=== PATIENT | female | born 1995 | race Caucasian/White ===

== ENCOUNTER → 2017-02-21 | Outpatient (CLI) | payer BC ==
[~2017-02-21] MED LIST: BCPILLS PO; FLV1 PO; LEVE500T13 PO; LEVE500T26 PO; RIBO100T9 PO; VITAMIN B 2 PO
[2017-02-23 03:10] LABS: CHLAMYDIA TRACH RNA*** DETECTED (NOT DETECTED); GC (NEIS GONORRHOEAE)RNA** NOT DETECTED (NOT DETECTED)
== END | disposition home or self-care (01) ==
LOC: C.LABSPEC 10:51
PROVIDERS: ATTEND Obstetrics & Gynecology
DX: Z01.419 Encounter for gynecological examination (general) (routine) without abnormal findings (principal)

== ENCOUNTER → 2017-02-21 | Outpatient (CLI) | payer BC | END | disposition home or self-care (01) | LOC: C.PAPS 11:30 | PROVIDERS: ATTEND Obstetrics & Gynecology | DX: Z01.419 Encounter for gynecological examination (general) (routine) without abnormal findings (principal) ==

== ENCOUNTER → 2017-04-12 | Outpatient (CLI) | payer BC | END | disposition home or self-care (01) | LOC: C.LABSPEC 16:07 | PROVIDERS: ATTEND Obstetrics & Gynecology | DX: A56.09 Other chlamydial infection of lower genitourinary tract (principal) ==

== ENCOUNTER 2017-05-05 20:56 | Emergency (ER) | payer BC ==
[~2017-05-05] VITALS: Ht 154.9 cm; Wt 45.6 kg
[~2017-05-05 20:56] MED LIST changes: -FLV1 PO; -LEVE500T13 PO; -RIBO100T9 PO
[2017-05-05 20:58] VITALS: TEMP 36.7; Ht 154.9 cm; Wt 45.6 kg
--- NOTE | 2017-05-05 21:26 | EMERGENCY ROOM VISIT NOTE ---
History Report prepared by Lavon: Boni Pressley Under the Supervision of: Dr. Vasiliy Mobley M.D. First contact with patient: 21:06 Chief Complaint: ABDOMINAL PAIN Stated Complaint: LOWER LF ABD CRAMPS/BACK PAIN History of Present Illness The patient is a 21 year old female who presents to the Emergency Room with complaints of intermittent, cramping, left lower quadrant abdominal pain beginning four days ago. The patient states that her pain radiates to her lower back. She reports that movements do not trigger her symptoms. The patient notes that when her pain is present, it is a 2/10 in severity, lasts for about a minute, and occurs 4-5 times an hour. She states that her last period was in March, and her menstrual cycle is typically irregular. The patient reports that she took two tests prior to arrival, and they were both positive. She notes that she takes Keppra for seizures. The patient denies fevers, vomiting, urinary problems, diarrhea, vaginal bleeding, vaginal discharge, history of abdominal surgeries, and a history of being . Source of History: patient Onset: four days ago Position: abdomen (LLQ) Symptom Intensity: 2/10 Quality: cramping Timing: intermittent Associated Symptoms: + back pain (lower), No fevers, No vomiting, No diarrhea, No urinary symptoms Note: The patient denies vaginal bleeding, vaginal discharge, history of abdominal surgeries, and a history of being . Review of Systems See HPI for pertinent positives & negatives. A total of 10 systems reviewed and were otherwise negative. Past Medical & Surgical Medical Problems: (1) Seizure Family History Cancer Diabetes mellitus FH: heart disease Hypertension Kidney disease Kidney stones Seizures Social History Smoking Status: Never Smoker Marital Status: single Housing Status: lives with family Occupation Status: student Current/Historical Medications Scheduled Control Pills ( Control Pills), 1 TAB PO DAILY Folic Acid (Folic Acid), 1 TAB PO DAILY Levetiracetam (Keppra), 500 MG PO BID Riboflavin (Vitamin B-2), 100 MG PO BID Allergies Coded Allergies: Lamotrigine (Verified Allergy, Intermediate, rash, 11/02/14) Sulfa Drugs (Verified Allergy, Intermediate, rash, 11/02/14) Metoclopramide (Verified Allergy, Unknown, `, 11/02/14) Uncoded Allergies: CONTRAST MEDIA (Allergy, Mild, RASH, 11/02/14) Physical Exam Vital Signs Date Time Temp Pulse Resp B/P (MAP) Pulse Ox O2 Delivery O2 Flow Rate FiO2 05/05/17 22:11 109 16 120/75 100 Room Air 05/05/17 20:58 36.7 92 16 138/85 100 Room Air Physical Exam GENERAL: Patient is in no acute distress. HEENT: No acute trauma, normocephalic atraumatic, mucous membranes moist, no nasal congestion, no scleral icterus. NECK: No stridor, no adenopathy, no meningismus, trachea is midline. LUNGS: Clear to auscultation bilaterally, no wheeze, no rhonchi, breath sounds equal. HEART: Mildly tachycardic with a regular rhythm, no murmurs. ABDOMEN: Soft, bowel sounds positive, no hernias, no peritonitis. Mildly tender in the left lower quadrant. EXTREMITIES: No cyanosis or edema, full range of motion of all the joints without pain or difficulty, no signs for acute trauma. NEUROLOGIC: Oriented x 3, no acute motor or sensory deficits, no focal weakness. SKIN: No rash, no jaundice, no diaphoresis. Medical Decision & Procedures ER Provider Diagnostic Interpretation: Radiology results as stated below per my review and radiologist interpretation: ECTOPIC HISTORY: 21 years-old Female left lower quad pain, pos preg test acute left lower pelvic pain with . Initial exam. COMPARISON: CT abdomen and pelvis 11/02/2014 TECHNIQUE: Multiple real-time sonographic images of the deep pelvic structures were obtained transabdominally and transvaginally assessing grayscale appearance, color and spectral flow. FINDINGS: TRANSABDOMINAL: Anteflexed uterus is seen, 7.2 x 4.0 x 5.8 cm. Endometrium measures 1.2 cm. TRANSVAGINAL: Endometrium measures 1.3 cm. No intrauterine gestation identified. Right ovary measures 4.9 x 2.5 x 3.9 cm. Arterial inflow is documented within the right ovary. There is a cystic structure of the right ovary, 2.5 x 1.6 x 2.4 cm Left ovary measures 2.6 x 1.6 x 1.5 cm. Arterial inflow within the left ovary is documented. Mild amount of free pelvic fluid is present. IMPRESSION: 1. No intrauterine or extrauterine gestation is identified. In the setting of positive qualitative beta hCG, differential considerations would include early normal intrauterine gestation, occult ectopic gestation or recent spontaneous . Correlate with patient history, follow-up ultrasound and quantitative beta hCG analysis. 2. Follicle of the right ovary, 2.5 cm. 3. No evidence of ovarian torsion. 4. Mild free pelvic fluid, likely physiologic. The above report was generated using voice recognition software. It may contain grammatical, syntax or spelling errors. Electronically signed by: Renny Lloyd M.D. 05/05/2017 10:19 PM Dictated Date/Time: 05/05/2017 10:14 PM Laboratory Results 05/05/17 21:22 Red Blood Count 4.29, Mean Corpuscular Volume 89.0, Mean Corpuscular Hemoglobin 31.2, Mean Corpuscular Hemoglobin Concent 35.1, Mean Platelet Volume 9.4, Neutrophils (%) (Auto) 56.0, Lymphocytes (%) (Auto) 30.9, Monocytes (%) (Auto) 11.7, Eosinophils (%) (Auto) 0.6, Basophils (%) (Auto) 0.5, Neutrophils # (Auto ) 5.87, Lymphocytes # (Auto) 3.24, Monocytes # (Auto) 1.23, Eosinophils # (Auto ) 0.06, Basophils # (Auto) 0.05 05/05/17 21:22 Test 05/05/17 21:10 05/05/17 21:22 Urine Color DK YELLOW Urine Appearance CLEAR (CLEAR) Urine pH 5.5 (4.5-7.5) Urine Specific [place] 1.017 (1.000-1.030) Urine Protein NEG (NEG) Urine Glucose (UA) NEG (NEG) Urine Ketones NEG (NEG) Urine Occult Blood NEG (NEG) Urine Nitrite NEG (NEG) Urine Bilirubin NEG (NEG) Urine Urobilinogen NEG (NEG) Urine Leukocyte Esterase NEG (NEG) White Blood Count 10.48 K/uL (4.8-10.8) Red Blood Count 4.29 M/uL (4.2-5.4) Hemoglobin 13.4 g/dL (12.0-16.0) Hematocrit 38.2 % (37-47) Mean Corpuscular Volume 89.0 fL (80-100) Mean Corpuscular Hemoglobin 31.2 pg (25-34) Mean Corpuscular Hemoglobin Concent 35.1 g/dl (32-36) Platelet Count 315 K/uL (130-400) Mean Platelet Volume 9.4 fL (7.4-10.4) Neutrophils (%) (Auto) 56.0 % Lymphocytes (%) (Auto) 30.9 % Monocytes (%) (Auto) 11.7 % Eosinophils (%) (Auto) 0.6 % Basophils (%) (Auto) 0.5 % Neutrophils # (Auto) 5.87 K/uL (1.4-6.5) Lymphocytes # (Auto) 3.24 K/uL (1.2-3.4) Monocytes # (Auto) 1.23 K/uL (0.11-0.59) Eosinophils # (Auto) 0.06 K/uL (0-0.5) Basophils # (Auto) 0.05 K/uL (0-0.2) RDW Standard Deviation 37.9 fL (36.4-46.3) RDW Coefficient of Variation 11.8 % (11.5-14.5) Immature Granulocyte % (Auto) 0.3 % Immature Granulocyte # (Auto) 0.03 K/uL (0.00-0.02) Anion Gap 9.0 mmol/L (3-11) Est Creatinine Clear Calc Drug Dose 95.4 ml/min Estimated GFR () 144.3 Estimated GFR (Non- 124.5 BUN/Creatinine Ratio 14.2 (10-20) Calcium Level 9.4 mg/dl (8.5-10.1) Total Bilirubin 0.3 mg/dl (0.2-1) Aspartate Amino Transf (AST/SGOT) 15 U/L (15-37) Alanine Aminotransferase (ALT/SGPT) 11 U/L (12-78) Alkaline Phosphatase 94 U/L (45-117) Total Protein 8.4 gm/dl (6.4-8.2) Albumin 4.4 gm/dl (3.4-5.0) Globulin 3.9 gm/dl (2.5-4.0) Albumin/Globulin Ratio 1.1 (0.9-2) Lipase 159 U/L (73-393) Human Chorionic Gonadotropin, Qual POS (NEG) Laboratory results reviewed by me. ED Course 2106: The patient was evaluated in room C07. A complete history and physical exam was performed. 2254: Reevaluated the patient. Discussed results and discharge instructions: she verbalized understanding and agreement. The patient is ready for discharge. Medical Decision The patient is a 21 year old female who presents to the ED with complaints of left lower quadrant abdominal pain. Differential diagnoses considered include ectopic or , ovarian cyst, UTI, nerve impingement, hernia.. There is no leukocytosis or concerning anemia. No significant electrolyte abnormality or kidney failure. testing is positive. Quantitative beta hCG is pending. Urinalysis does not show infection or hematuria. There was no hepatitis or pancreatitis. Pelvic ultrasound could not see a within the uterus or elsewhere. The ultrasound was essentially nondiagnostic for . The patient is not in significant pain, she is not having vaginal bleeding. I did speak with her. At this point, the cause for the pain is unclear. She is but this is very early on. As to whether this is an ectopic or intrauterine is unclear. She needs OB follow-up and repeat laboratory testing and ultrasounds. She was encouraged to return here for fever , vomiting, worsening pain or vaginal bleeding. Impression Primary Impression: Pelvic cramping Additional Impression: Scribe Attestation The scribe's documentation has been prepared under my direction and personally reviewed by me in its entirety. I confirm that the note above accurately reflects all work, treatment, procedures, and medical decision making performed by me. Departure Information Dispostion Home / Self-Care Referrals Rach Henderson (PCP) Boni Mims ., DO Forms HOME CARE DOCUMENTATION FORM, IMPORTANT VISIT INFORMATION Patient Instructions My [facility] Additional Instructions must see ob doctor for recheck this week you are but the ultrasound could not see a yet return for worsening pain or vaginal bleeding Problem Qualifiers
[2017-05-05 21:32] LABS: BASO % 0.5 %; BASO ABS # 0.05 K/uL (0-0.2); COMPLETE YES; EOS % 0.6 %; HEMATOCRIT 38.2 % (37-47); IG% 0.3 %; LYMPH % 30.9 %; LYMPH ABS # 3.24 K/uL (1.2-3.4); MEAN CORPUSCULAR HEMOGLOBIN 31.2 pg (25-34); MEAN CORPUSCULAR HGB CONC 35.1 g/dl (32-36); MEAN PLATELET VOLUME 9.4 fL (7.4-10.4); MONO % 11.7 %; PLATELET COUNT 315 K/uL (130-400); RED BLOOD COUNT 4.29 M/uL (4.2-5.4); WHITE BLOOD COUNT 10.48 K/uL (4.8-10.8)
[2017-05-05 21:35] LABS: URINE APPEARANCE CLEAR (CLEAR); URINE BILIRUBIN NEG (NEG); URINE COLOR DK YELLOW; URINE NITRITE NEG (NEG); URINE PH 5.5 (4.5-7.5); URINE SPECIFIC GRAVITY 1.017 (1.000-1.030); UROBILINOGEN NEG (NEG); ZZUR CULT IF INDIC CLEAN CATCH NO
[2017-05-05 21:37] LABS: MANUAL MICROSCOPIC REQUIRED? NO; REVIEW REQ? NO
[2017-05-05] MEDS ORDERED: FLV1 PO (21:39)
[2017-05-05] MEDS ORDERED: RIBO100T9 PO (21:39)
[2017-05-05] MEDS ORDERED: LEVE500T13 PO (21:39)
[2017-05-05 21:49] LABS: BUN/CREATININE RATIO 14.2 (10-20); CALCIUM 9.4 mg/dl (8.5-10.1); CREATININE 0.66 mg/dl (0.60-1.20); POTASSIUM 3.4 mmol/L (3.5-5.1)
[2017-05-05 21:52] LABS: ALB/GLOB RATIO 1.1 (0.9-2)
[2017-05-05 21:59] LABS: PREG INTERNAL NEGATIVE QC NEG CLEAR BACKGROUND; PREG INTERNAL POSITIVE QC POS CONTROL LINE
--- NOTE | 2017-05-05 22:20 | DIAGNOSTIC IMAGING REPORT ---
ECTOPIC HISTORY: 21 years-old Female left lower quad pain, pos preg test acute left lower pelvic pain with . Initial exam. COMPARISON: CT abdomen and pelvis 11/02/2014 TECHNIQUE: Multiple real-time sonographic images of the deep pelvic structures were obtained transabdominally and transvaginally assessing grayscale appearance, color and spectral flow. FINDINGS: TRANSABDOMINAL: Anteflexed uterus is seen, 7.2 x 4.0 x 5.8 cm. Endometrium measures 1.2 cm. TRANSVAGINAL: Endometrium measures 1.3 cm. No intrauterine gestation identified. Right ovary measures 4.9 x 2.5 x 3.9 cm. Arterial inflow is documented within the right ovary. There is a cystic structure of the right ovary, 2.5 x 1.6 x 2.4 cm Left ovary measures 2.6 x 1.6 x 1.5 cm. Arterial inflow within the left ovary is documented. Mild amount of free pelvic fluid is present. IMPRESSION: 1. No intrauterine or extrauterine gestation is identified. In the setting of positive qualitative beta hCG, differential considerations would include early normal intrauterine gestation, occult ectopic gestation or recent spontaneous . Correlate with patient history, follow-up ultrasound and quantitative beta hCG analysis. 2. Follicle of the right ovary, 2.5 cm. 3. No evidence of ovarian torsion. 4. Mild free pelvic fluid, likely physiologic. The above report was generated using voice recognition software. It may contain grammatical, syntax or spelling errors. Electronically signed by: Renny Lloyd M.D. 05/05/2017 10:19 PM Dictated Date/Time: 05/05/2017 10:14 PM
[2017-05-05 23:05] VITALS: BP 108/73; PULSE 99; O2SAT 98
== END 2017-05-05 23:08 | disposition home or self-care (01) ==
LOC: C.EDB 20:57 → C.EDC 23:08
DX: O99.89 Other specified diseases and conditions complicating pregnancy, childbirth and the puerperium (principal); R10.32 Left lower quadrant pain; Z3A.01 Less than 8 weeks gestation of pregnancy; Z80.9 Family history of malignant neoplasm, unspecified; Z83.3 Family history of diabetes mellitus; Z82.49 Family history of ischemic heart disease and other diseases of the circulatory system; Z84.1 Family history of disorders of kidney and ureter; Z82.0 Family history of epilepsy and other diseases of the nervous system; Z79.899 Other long term (current) drug therapy; Z79.3 Long term (current) use of hormonal contraceptives

== ENCOUNTER → 2017-05-28 | Outpatient (CLI) | payer BC ==
[~2017-05-28] MED LIST changes: +FLV1 PO; +LEVE500T13 PO; -LEVE500T26 PO; +RIBO100T9 PO; -VITAMIN B 2 PO
[2017-05-28 17:44] LABS: URINE APPEARANCE TURBID (CLEAR); URINE BILIRUBIN NEG (NEG); URINE COLOR DK YELLOW; URINE NITRITE NEG (NEG); URINE SPECIFIC GRAVITY 1.025 (1.000-1.030); UROBILINOGEN NEG (NEG)
[2017-05-28 17:47] LABS: MANUAL MICROSCOPIC REQUIRED? NO; REVIEW REQ? YES
== END | disposition home or self-care (01) ==
LOC: C.LABSPEC 16:45
PROVIDERS: ATTEND Obstetrics & Gynecology
DX: O99.351 Diseases of the nervous system complicating pregnancy, first trimester (principal); G96.9 Disorder of central nervous system, unspecified; Z3A.00 Weeks of gestation of pregnancy not specified

== ENCOUNTER → 2017-06-05 | Outpatient (CLI) | payer BC ==
[2017-06-05 13:24] LABS: BASO % 0.6 %; BASO ABS # 0.05 K/uL (0-0.2); COMPLETE YES; EOS % 0.4 %; HEMATOCRIT 37.6 % (37-47); IG% 0.5 %; LYMPH % 21.6 %; LYMPH ABS # 1.76 K/uL (1.2-3.4); MEAN CORPUSCULAR HEMOGLOBIN 29.9 pg (25-34); MEAN CORPUSCULAR HGB CONC 33.2 g/dl (32-36); MEAN PLATELET VOLUME 9.6 fL (7.4-10.4); MONO % 11.9 %; PLATELET COUNT 260 K/uL (130-400); RED BLOOD COUNT 4.18 M/uL (4.2-5.4); WHITE BLOOD COUNT 8.13 K/uL (4.8-10.8)
[2017-06-08 02:55] LABS: CHLAMYDIA TRACH RNA*** NOT DETECTED (NOT DETECTED); GC (NEIS GONORRHOEAE)RNA** NOT DETECTED (NOT DETECTED)
== END | disposition home or self-care (01) ==
LOC: C.LAB1850 11:30
PROVIDERS: ATTEND Obstetrics & Gynecology
DX: O99.351 Diseases of the nervous system complicating pregnancy, first trimester (principal); Z3A.00 Weeks of gestation of pregnancy not specified

== ENCOUNTER → 2017-07-24 | Outpatient (CLI) | payer BC ==
[2017-07-24 11:19] LABS: GTGD 50 Grams
[2017-07-25 14:17] LABS: AFP CONCENTRATION 39.6 NG/ML; AFP MULTIPLE OF MEDIAN 0.89; AFPTS GESTATIONAL AGE 16.1 WEEKS; AFPTS INSULIN DEP DIABETIC? NO; AFPTS MATERNAL WT 99 LBS; ALPHA-FETOPROTEIN RACE CAUCASIAN=W; CIGARETTE SMOKER? NOT PROVIDED; HISTORY OF NTD NO; REPEAT SAMPLE? NO
== END | disposition home or self-care (01) ==
LOC: C.LAB1850 08:46
PROVIDERS: ATTEND Obstetrics & Gynecology
DX: Z34.02 Encounter for supervision of normal first pregnancy, second trimester (principal)

== ENCOUNTER → 2017-09-28 | Outpatient (CLI) | payer OTHER ==
[2017-09-28 18:47] LABS: HEP C IGG 13 YRS+OLDER_RFLX NEG (NEG)
== END | disposition home or self-care (01) ==
LOC: C.LAB1850 17:15
PROVIDERS: ATTEND Nurse Practitioner Family
DX: Z77.21 Contact with and (suspected) exposure to potentially hazardous body fluids (principal)

== ENCOUNTER → 2017-10-04 | Outpatient (CLI) | payer OTHER | END | disposition home or self-care (01) | LOC: C.LABSPEC 14:06 | PROVIDERS: ATTEND Obstetrics & Gynecology | DX: B00.9 Herpesviral infection, unspecified (principal) ==

== ENCOUNTER → 2017-10-15 | Outpatient (CLI) | payer OTHER ==
[2017-10-15 13:01] LABS: HEMATOCRIT 30.6 % (37-47); HEMOGLOBIN 10.7 g/dL (12.0-16.0)
== END | disposition home or self-care (01) ==
LOC: C.LAB1850 11:42
PROVIDERS: ATTEND Obstetrics & Gynecology
DX: Z34.03 Encounter for supervision of normal first pregnancy, third trimester (principal)

== ENCOUNTER → 2017-10-15 | Outpatient (CLI) | payer OTHER | END | disposition home or self-care (01) | LOC: C.LABSPEC 13:37 | PROVIDERS: ATTEND Obstetrics & Gynecology | DX: Z34.03 Encounter for supervision of normal first pregnancy, third trimester (principal) ==

== ENCOUNTER → 2017-10-29 | Outpatient (CLI) | payer OTHER | END | disposition home or self-care (01) | LOC: C.LABSPEC 13:22 | PROVIDERS: ATTEND Obstetrics & Gynecology | DX: Z20.2 Contact with and (suspected) exposure to infections with a predominantly sexual mode of transmission (principal) ==

== ENCOUNTER → 2017-11-09 | Outpatient (CLI) | payer OTHER | END | disposition home or self-care (01) | LOC: C.LABSPEC 17:28 | PROVIDERS: ATTEND Nurse Practitioner Family | DX: Z77.21 Contact with and (suspected) exposure to potentially hazardous body fluids (principal) ==

== ENCOUNTER 2017-12-04 23:28 | Emergency (ER) | payer OTHER ==
[~2017-12-04] VITALS: Ht 154.9 cm; Wt 53.9 kg
[2017-12-04 23:32] VITALS: TEMP 36.9; Ht 154.9 cm; Wt 53.9 kg
[2017-12-05] MEDS ORDERED: NORCO 5/325MG HOME PACK PO ONE
[2017-12-05] MEDS ORDERED: FOLI1TAB8 PO (00:01)
[2017-12-05] MEDS ORDERED: PRENTAB26 PO (00:01)
[2017-12-05 00:24] VITALS: BP 109/72; PULSE 97; O2SAT 97
--- NOTE | 2017-12-05 23:51 | EMERGENCY ROOM VISIT NOTE ---
History First contact with patient: 23:35 Chief Complaint: BACK PAIN Stated Complaint: LT SIDE BACK PAIN History of Present Illness The patient is a 22 year old female who presents to the Emergency Room with complaints of left-sided back pain radiating down her left leg that began worsening today. The patient does not have history of injury or trauma to explain her symptoms. Her discomfort worsens with certain movements and sitting in certain positions. The patient does not have numbness or paresthesias. No difficulty or changes in using the bathroom. She is 35 weeks , and because of this has not taken anything [id number] for her discomfort. She does not have a history of chronic back pain. She rates her current discomfort a 2/10 at rest and 8/10 at the worst. Review of Systems More than 10 systems were reviewed and otherwise negative with the exception of history of present illness. Past Medical/Surgical History Medical Problems: (1) Seizure Family History Cancer Diabetes mellitus FH: heart disease Hypertension Kidney disease Kidney stones Seizures Social History Smoking Status: Never Smoker Marital Status: single Housing Status: lives with family Occupation Status: student Current/Historical Medications Scheduled Folic Acid (Folvite), 1 MG PO DAILY Levetiracetam (Keppra), 500 MG PO BID Multivit/Min/Iron/Fol Ac/Pren ( Vitamin), 1 TAB PO DAILY Riboflavin (Vitamin B-2), 100 MG PO BID Physical Exam Vital Signs Date Time Temp Pulse Resp B/P (MAP) Pulse Ox O2 Delivery O2 Flow Rate FiO2 12/05/17 00:24 97 22 109/72 97 12/04/17 23:32 36.9 83 18 123/78 99 Room Air Physical Exam VITALS: Vitals are noted on the nurse's note and reviewed by myself. Vital signs stable. GENERAL: Well-developed, well-nourished, white female, who is in no acute distress and resting comfortably. Patient is cooperative with the examination. NECK: Supple without nuchal rigidity. No lymphadenopathy. No thyromegaly. Cervical spine is nontender. HEART: Regular rate and rhythm without murmurs gallops or rubs. LUNGS: Clear to auscultation bilaterally without wheezes, rales or rhonchi. No retractions or accessory muscle use. ABDOMEN: Positive normal bowel sounds x 4. Soft and consistent with 35 week gestation. No tenderness noted. No CVA tenderness. MUSCULOSKELETAL: No muscle atrophy, erythema, or edema noted. Positive tenderness over the left SI joint and lower lumbar spine. Positive straight leg raise on left. No saddle paresthesias. DTRs intact. Medical Decision & Procedures Medications Administered Medications (Trade) Dose Ordered Sig/Alexia Route Start Time Stop Time Status Last Admin Dose Admin Acetaminophen/ Hydrocodone Bitart ([place] 5/325mg Home Pack) [facility] UD ONCE PO 12/05/17 00:00 12/05/17 00:01 DC 12/05/17 00:24 1 HOMEPACK ED Course Physical exam and history were performed. Nursing notes, EMR, and Medication List were personally reviewed. Patient appears to have left-sided low back pain over the past 1 day. On examination she is palpably tender in the left SI distribution and appears to be describing sciatic symptoms. She has a positive straight leg raise on the left as well. Her symptoms do not appear consistent with contractions as she is not having any abdominal or uterine/vaginal discomfort. I had a lengthy discussion with the patient regarding options of care. Because of her status her options are somewhat limited. I will give the patient a home pack of Vicodin to help for the next few days. She is otherwise to use [id number] Tylenol and follow with [employer]. The patient was pleased with this and voiced understanding. She rated her discomfort a 5/10 at the time of departure. The chart was completed utilizing [employer] Speech Voice Recognition Software. Grammatical errors, random word insertions, pronoun errors, and incomplete sentences are an occasional consequence of this system due to software limitations, ambient noise, and hardware issues. Any formal questions or concerns about the content, text, or information contained within the body of this dictation should be directly addressed to the provider for clarification. . Medical Decision Differential diagnosis: Etiologies such as musculoskeletal, disc herniation, fracture, aortic disease, metastatic disease, cord compression, discitis, infection, renal colic, gastrointestinal, acute exacerbation of chronic back pain, sciatica, cauda equina, as well as others were entertained. Impression Primary Impression: Low back pain with sciatica Additional Impression: state, incidental Departure Information Dispostion Home / Self-Care Condition GOOD Referrals No Doctor, Assigned Rach Henderson (PCP) Forms HOME CARE DOCUMENTATION FORM, IMPORTANT VISIT INFORMATION Patient Instructions [facility] Additional Instructions You were seen and evaluated today on an emergency basis only. This is not a substitute for, or an effort to provide, complete comprehensive medical care. It is not possible to recognize and treat all injuries or illnesses in a single emergency department visit. For this reason it is recommended that you followup with [facility] as scheduled for ongoing care and evaluation. Take Tylenol 1000 mg every 6-8 hours for baseline pain control. [place] (hydrocodone/acetaminophen) 5/325 mg (homepack) ONE tablet by mouth every 6 hours as needed for worsening breakthrough pain. Do not drink or drive on [place]. This medication will likely make you tired. Do not take [place] and Tylenol at the same time as both contain acetaminophen. [place] may cause constipation. You may wish to take an xuyc-ehn-kilkfys stool softener like Colace if this occurs. You are welcome to return to the emergency department anytime with new, worsening, or concerning symptoms. Problem Qualifiers
== END 2017-12-05 00:27 | disposition home or self-care (01) ==
LOC: C.EDB 23:29 → C.EDA 12-05 00:27
DX: M54.42 Lumbago with sciatica, left side (principal); Z33.1 Pregnant state, incidental; G40.909 Epilepsy, unspecified, not intractable, without status epilepticus; Z83.3 Family history of diabetes mellitus; Z82.49 Family history of ischemic heart disease and other diseases of the circulatory system; Z84.1 Family history of disorders of kidney and ureter; Z82.0 Family history of epilepsy and other diseases of the nervous system

== ENCOUNTER → 2017-12-12 | Outpatient (CLI) | payer OTHER ==
[~2017-12-12] MED LIST changes: -BCPILLS PO; -FLV1 PO; +FOLI1TAB8 PO; +PRENTAB26 PO
== END | disposition home or self-care (01) ==
LOC: C.LABSPEC 17:36
PROVIDERS: ATTEND Obstetrics & Gynecology
DX: Z34.03 Encounter for supervision of normal first pregnancy, third trimester (principal); Z20.2 Contact with and (suspected) exposure to infections with a predominantly sexual mode of transmission

== ENCOUNTER → 2017-12-21 | Outpatient (CLI) | payer OTHER | END | disposition home or self-care (01) | LOC: C.LAB 13:25 → C.MNPGOH 13:25 → EDSTATUS 01-04 10:33 | PROVIDERS: ATTEND Nurse Practitioner Family | DX: Z77.21 Contact with and (suspected) exposure to potentially hazardous body fluids (principal) ==

== ENCOUNTER 2018-01-16 04:38 | Inpatient (IN) | payer OTHER ==
[~2018-01-16] VITALS: Ht 154.9 cm; Wt 54.4 kg
[2018-01-16] MEDS ORDERED: NURSING VERBAL MED ORDER ONE ×3 (05:00→08:50)
[2018-01-16] MEDS ORDERED: ONDANSETRON INJ 2 MG/ML 2 ML VIAL IV STA (05:04)
[2018-01-16] MEDS ORDERED: ACYC-57 PO (05:11)
[2018-01-16 05:12] VITALS: Ht 154.9 cm; Wt 54.4 kg
[2018-01-16] MEDS ORDERED: BUTORPHANOL TARTRATE 1 MG/ML VIAL IV PRN (05:15)
[2018-01-16] MEDS ORDERED: ONDANSETRON INJ 2 MG/ML 2 ML VIAL IV PRN ×2 (05:15→06:15)
[2018-01-16] MEDS ORDERED: FENTANYL CITRATE INJ 50 MCG/1 ML 2 ML VIAL ONE ×2 (05:16→09:39)
[2018-01-16] MEDS ORDERED: BUPIVACAINE 0.25% 30 ML VIAL ONE ×2 (05:16→09:38)
[2018-01-16] MEDS ORDERED: EpHEDrine SULFATE INJ 50 MG/ML AMP ONE (05:16)
[2018-01-16 05:17] LABS: HEMATOCRIT 34.7 % (37-47); HEMOGLOBIN 12.4 g/dL (12.0-16.0); MEAN CELL VOLUME 89.9 fL (80-100); MEAN CORPUSCULAR HEMOGLOBIN 32.1 pg (25-34); MEAN PLATELET VOLUME 10.4 fL (7.4-10.4); PLATELET COUNT 159 K/uL (130-400); RED CELL DISTRIBUTION WIDTH CV 14.1 % (11.5-14.5); RED CELL DISTRIBUTION WIDTH SD 45.9 fL (36.4-46.3); WHITE BLOOD COUNT 15.15 K/uL (4.8-10.8)
[2018-01-16] MEDS ORDERED: FENTANYL 2MCG/ML ROPIV 1.25MG/ML 100ML BAG ONE (05:17)
[2018-01-16 05:23] LABS: MEAN CORPUSCULAR HGB CONC 35.7 g/dl (32-36)
[2018-01-16] MEDS ORDERED: NALOXONE HCL INJ 1 MG in SODIUM CHLORIDE 0.9% 1000ML 1,000 ML IV PRN ×4 (06:02)
[2018-01-16] MEDS ORDERED: LACTATED RINGER'S 1000ML 500 ML IV PRN (06:02)
[2018-01-16] MEDS ORDERED: NALBUPHINE HCL INJ 10 MG/ML AMP IV PRN (06:15)
[2018-01-16] MEDS ORDERED: NALOXONE HCL INJ 0.4 MG/1 ML VIAL/CARP IV PRN (06:15)
[2018-01-16] MEDS ORDERED: EpHEDrine SULFATE INJ 50 MG/ML AMP IV PRN (06:15)
[2018-01-16] MEDS ORDERED: PROMETHAZINE HCL INJ 25 MG in SODIUM CHLORIDE 0.9% 50ML 50 ML IV PRN (06:15)
[2018-01-16] MEDS ORDERED: DiphenhydrAMINE HCL 50 MG/ML VIAL IV PRN (06:15)
[2018-01-16] MEDS: FENTANYL 2MCG/ML ROPIV 1.25MG/ML 100ML BAG EPI PRN ×3 (07:02→11:50)
[2018-01-16] MEDS ORDERED: LACTATED RINGER'S 1000ML 1,000 ML IV SCH (08:10)
[2018-01-16] MEDS ORDERED: OXYTOCIN 30 UNITS/500ML NSS IV ONE ×2 (14:12→15:39)
--- NOTE | 2018-01-16 17:34 | Anesthesia Procedure Note ---
Anesthesia Epidural Removal Nt Date & Time January 16, 2018 at 17:34 Vital Signs Pain Intensity: 9.0 Notes Mental Status: alert / awake / arousable, participated in evaluation Nausea / Vomiting: adequately controlled Pain: adequately controlled Airway Patency, RR, SpO2: stable & adequate BP & HR: stable & adequate Hydration State: stable & adequate Neuraxial Anesthesia: was administered Anesthetic Complications: no major complications apparent, pt satisfied with anesthetic care Epidural: removed without complications, with tip intact
[2018-01-16] MEDS ORDERED: SUPERCREAM 0.870 % 15GM JAR EXT PRN (18:00)
[2018-01-16] MEDS ORDERED: LANOLIN OINT EXT PRN (18:00)
[2018-01-16] MEDS ORDERED: OXYCODONE/ACETAMINOPHEN 5-325 TAB PO PRN (18:00)
[2018-01-16] MEDS ORDERED: HYDROCORTISONE ACETATE 25 MG SUPP PR PRN (18:00)
[2018-01-16] MEDS ORDERED: OXYTOCIN 30 UNITS/500ML NSS IV PRN (18:00)
[2018-01-16] MEDS ORDERED: BENZOCAINE 20% AER SPR 82.5 GM CAN EXT PRN (18:00)
[2018-01-16] MEDS ORDERED: ACETAMINOPHEN 325 MG TAB PO PRN (18:00)
[2018-01-16 20:00] VITALS: BP 106/76; PULSE 118; TEMP 36.8
[2018-01-16] MEDS: DOCUSATE SODIUM 100 MG CAP PO SCH (20:44)
[2018-01-16] MEDS: IBUPROFEN 600 MG TAB PO PRN (20:45)
[2018-01-16] MEDS: LEVETIRACETAM 500 MG TAB PO SCH (20:45)
--- NOTE | 2018-01-16 22:02 | Vaginal Delivery Summary ---
Vaginal Delivery Summary Predelivery diagnoses: 1. 22-year-old at 41 weeks 2 days 2. Spontaneous labor 3. History of chlamydia 4. History of HSV infection 5. Seizure disorder Postdelivery diagnoses: Same Procedure: Spontaneous vaginal delivery with repair of third-degree perineal laceration, right vaginal laceration, periurethral lacerations Findings: Viable male , Apgars 8 and 9 Estimated blood loss 600 cc Complications: Vaginal bleeding from periurethral and vaginal laceration Description of delivery: The patient progressed to complete with epidural anesthesia and then began to push. She then vaginally delivered a viable male from the cephalic presentation. The head delivered, followed by the anterior and the posterior shoulder, followed by the body. Baby is placed on mother's abdomen, a spontaneous cry was heard. The cord was doubly clamped and cut and cord blood was obtained for public cord banking donation per the patient's request. A small amount of cord blood was then obtained for typing. The placenta then delivered spontaneously intact with a three-vessel cord. Pitocin was given and the uterus became firm. The uterus and vagina were swept of all clots and debris, the cervix vagina and perineum were inspected, and a third-degree perineal laceration was noted, as well as a right vaginal laceration and multiple small periurethral lacerations. The tear was called a third-degree perineal laceration due to partial tear through the anal sphincter. However this tear was not full thickness. The anterior aspect of the anal sphincter was reapproximated using 2 separate zqprvg-zv-ulijr sutures of 2-0 chromic. The remainder of the perineal laceration was reapproximated in standard fashion using 3-0 Vicryl in a running stitch. The right vaginal laceration was reapproximated using multiple 3-0 Vicryl sutures in running and vsmhwb-cc-[id number] fashion. Next, a red rubber catheter was placed in the bladder to ensure urethral anatomy during repair of the melissa- urethral lacerations. These were repaired to obtain hemostasis using multiple dptcgr-fv-hixgh sutures of 3-0 Vicryl. Hemostasis was further achieved using direct pressure and application of Courtney powder. At the conclusion of the repair, excellent hemostasis was observed. The mother and the baby tolerated the delivery well and are recovering in the room in stable and good condition. The sponge, instrument, needle counts were correct 2 at the conclusion of the delivery.
[2018-01-17] VITALS: BP 112/73; PULSE 92; TEMP 36.7
[2018-01-17 04:10] VITALS: BP 102/72; PULSE 85; TEMP 36.5
[2018-01-17 05:37] LABS: HEMATOCRIT 26.9 % (37-47); HEMOGLOBIN 9.4 g/dL (12.0-16.0)
--- NOTE | 2018-01-17 06:35 | Progress Note ---
Subjective January 17, 2018. Subjective conversation w/ patient Ambulation: ambulating normally Voiding: no voiding problems Diet Tolerance: Regular Diet Lochia: Moderate Feeding Type: Breast Feeding Pain: Occasional abdominal cramps noted Review of Systems Constitutional: No fever, No chills Respiratory: No shortness of breath Cardiac: No chest pain Abdomen: No nausea, No vomiting Objective Vital Signs Date Time Temp Pulse Resp B/P (MAP) Pulse Ox O2 Delivery O2 Flow Rate FiO2 01/17/18 04:10 36.5 85 16 102/72 (82) 01/17/18 00:00 36.7 92 16 112/73 (86) 01/17/18 00:00 Room Air 01/16/18 20:00 Room Air 01/16/18 20:00 36.8 118 20 106/76 (86) Room Air Physical Exam General Appearance: WELL-APPEARING, WD/WN, NO APPARENT DISTRESS Respiratory/Chest: lungs clear, normal breath sounds Cardiovascular: regular rate, rhythm Abdomen: soft Fundus: Firm, Non-Tender, Relation to Umbilicus (at u) Extremities: no pedal edema, no calf tenderness Laboratory Results Last 24 Hours Test 01/17/18 05:24 Hemoglobin 9.4 g/dL Hematocrit 26.9 % Assessment and Plan Problem List Medical Problems: (1) Low back pain with sciatica Status: Acute (2) Pelvic cramping Status: Acute (3) Status: Acute (4) state, incidental Status: Acute Post- Day#: 1 Continue Routine Care: 22F s/p NVD day 1 - O+, Rubella Immune, GBS -ve - pt doing well clinically - Vital signs reviewed - pt was tachycardic up to 118 last night, but has resolved since - Hemoglobin reviewed. 12.4 -> 9.4 - Routine care - cncourage ambulation, encourage breast feeding Resident Physician Supervision Note: I was present with Dr. Koenig during the history and exam. I discussed the case with the resident and agree with the findings and plan as documented in the note. Any exceptions or clarifications are listed here: PPD#1 doing well. Routine PP care. Documented By: Arlene Montejo Resident Tracking Resident Involvement: Resident Care Provided Care Provided: OB Delivery
--- NOTE | 2018-01-17 06:43 | Discharge Instructions ---
Discharge Instructions Date of Service January 17, 2018. Admission Reason for Admission: Induction Discharge Discharge Diagnosis / Problem: Vaginal Delivery Discharge Goals Goal(s): Routine recovery after delivery Medications Continue Dispensed Medications: supercream, dermaplast, tucks, lansinoh Activity Recommendations Activity Limitations: per Instructions/Follow-up section . Instructions / Follow-Up Instructions / Follow-Up ACTIVITY RECOMMENDATIONS: * Gradual return to full activity over the next 2-3 weeks. * No lifting - nothing heavier than baby over the next 2-3 weeks. * Do not engage in vigorous exercise, sexual activity or sports until cleared by your physician. * Do not drive or operate any motorized equipment until cleared by your physician. * You may shower/bathe daily. MEDICATIONS: For discomfort or pain, you may use Acetaminophen (Tylenol), Ibuprofen (Advil), or Naproxen (Aleve) following the package directions. For constipation you may use Colace following the package directions. BREAST CARE: If you are not breast feeding: * Wear a supportive bra 24 hours a day for one to two weeks. * Avoid stimulating your breasts and nipples as much as possible during the first few weeks after delivery. * When taking a shower, have the warm water hit your back, not breasts. * When your breasts feel full, apply ice packs. Usually three to four times a day helps ease the discomfort. * Take a mild pain medication (Tylenol / Motrin) when you are uncomfortable. If breast feeding: * Use breast milk to lubricate nipples. Lansinoh cream may be used for sore nipples. You do not need to remove cream prior to breast feeding. If using a different brand of cream, check the label for directions regarding removal of cream prior to nursing. * Wear a supportive bra. * If having problems with breasts or breast feeding, call a reporting process consultant or your health care provider. EPISIOTOMY CARE: After delivery, if you have an episiotomy (stitches), the following steps will ease discomfort and aid healing. * For the first 24 hours after delivery, place ice packs next to your episiotomy to help reduce swelling. * After the first 24 hour-period, sitz baths, either portable or in the tub, are suggested. A shower with a shower arm sprayed over the episiotomy may be comforting. * [place] care should be done after each voiding and bowel movement. Squirt warm water from a plastic bottle over the perineum (region of the body between the anus and urinary opening) and pat dry. * Use Dermoplast to ease discomfort. Shake container. [place] directly over the episiotomy. Place a Tucks on a clean sanitary pad next to your episiotomy. SPECIAL CARE INSTRUCTIONS: When you are discharged from the hospital, it is important for you to follow the instructions listed below: * During the first week at home, you should be able to care for yourself and your baby. In addition, the usual light household activities are encouraged. * Limit your activities to the way you feel. Do not try to clean the house or move furniture. Be sensible. * If you actively engage in sports and have done so up until the time of your delivery, you may resume these activities as soon as you feel able. This may take up to one month or even longer. Use good judgment. * Continue to take your vitamins for at least six weeks after the of your baby. * Your diet need not be limited unless you were on a special diet before your delivery. Breast-feeding mothers need around 2500 calories per day and at least 64-80 ounces of fluid per day (8 to 10 glasses). * You should eat foods from the four major food groups. Crash diets or fad diets are to be avoided. Eating lean meats, fresh fruits and vegetables, low-fat dairy products, high fiber foods and a regular exercise program, will help you get back to your pre- weight without putting your health at risk. * Constipation is sometimes a problem after delivery. Take a mild laxative as needed. If breast feeding, Milk of Magnesia is acceptable to use. You may use a suppository or Fleets enema if no episiotomy. * A daily shower or tub bath is suggested. Be sure to thoroughly and gently dry the perineum. * A bloody vaginal discharge will usually continue until around four weeks post . A small amount of bleeding may continue for as long as six weeks. Vaginal discharge changes from the bright red bleeding after delivery to pink then brownish and finally yellowish-pink before becoming white and disappearing. * Bleeding may increase with activity. Your first period may come in 4-8 weeks. If you are breast feeding, your period may be delayed even longer. * [place] (sex) can begin whenever both you and your partner feel comfortable and do not have any form of genital infection. It is recommended that you wait at least six weeks for internal and external healing to occur. If you have questions, please talk to your health care practitioner. A condom should be used to prevent infection and . * Foreplay, gentle intercourse and lubrication is very important the first several times to prevent pain. A water-based lubricant such as K-Y jelly or Astroglide may be used. * If you have RH negative blood and your baby is RH positive, you will receive RHOGAM by injection prior to discharge. The nurse will give you a card to keep with you that has the date and place that you received RHOGAM after delivery. * During your care, you had a Rubella screen done to check for the presence of rubella antibodies in your blood. If your test was negative, you will receive a Rubella vaccine prior to discharge. This vaccine may cause a fever, soreness at the injection site and flu-like symptoms. If these symptoms persist, notify your health care practitioner. is not advised for one month after a Rubella vaccine. * Verbalizes understanding of car seat law as reviewed with patient nursing. * Car Seat hand-out given and reviewed with patient by nursing. * Shaken baby information reviewed with patient by nursing. Call you doctor if: * Heavy bleeding (saturating several pads an hour) or passing clots the size of your fist. * A fever >101 degrees F (38.3 degrees C) on two occasions four hours apart and /or chills. * Unusual pain in the pelvic or vaginal areas. * "Baby Blues" lasting longer than two weeks. If you have any questions or concerns, call your health care practitioner at . FOLLOW UP VISIT: * Please call the office at to schedule a 6 week examination. It is important you keep this appointment. It is important for you to make arrangements for either yearly or twice yearly check-ups thereafter. Current Hospital Diet Patient's current hospital diet: Regular Diet Discharge Diet Recommended Diet: Regular Diet Pending Studies Studies pending at discharge: no Medical Emergencies . Who to Call and When: Medical Emergencies: If at any time you feel your situation is an emergency, please call 911 immediately. . Non-Emergent Contact Non-Emergency issues call your: Primary Care Provider . . "Provider Documentation" section prepared by Jignesh Koenig. .
[2018-01-17 07:55] VITALS: BP 96/64; PULSE 79; TEMP 36.5
[2018-01-17] MEDS: PRENATAL VITAMIN TAB PO SCH (08:45)
[2018-01-17] MEDS: LEVETIRACETAM 500 MG TAB PO SCH ×2 (08:46→19:55)
[2018-01-17] MEDS: DOCUSATE SODIUM 100 MG CAP PO SCH ×2 (08:46→19:55)
[2018-01-17 12:10] VITALS: BP 105/70; PULSE 99; TEMP 36.8; O2SAT 100
[2018-01-17 15:45] VITALS: BP 109/73; PULSE 87; TEMP 36.8
[2018-01-17] MEDS: IBUPROFEN 600 MG TAB PO PRN (15:46)
[2018-01-17] MEDS ORDERED: BISACODYL 5 MG TABEC PO SCH (20:00)
[2018-01-17 23:15] VITALS: BP 89/60; PULSE 88; TEMP 36.7; O2SAT 97
--- NOTE | 2018-01-18 06:30 | Progress Note ---
Subjective January 18, 2018. Subjective conversation w/ patient Ambulation: ambulating normally Voiding: no voiding problems Diet Tolerance: Regular Diet Lochia: Moderate Feeding Type: Breast Feeding Pain: Occasional cramps noted Review of Systems Constitutional: No fever, No chills Respiratory: No shortness of breath Cardiac: No chest pain Abdomen: No nausea, No vomiting Objective Vital Signs Date Time Temp Pulse Resp B/P (MAP) Pulse Ox O2 Delivery O2 Flow Rate FiO2 01/17/18 23:15 36.7 88 16 89/60 (70) 97 Room Air 01/17/18 23:15 97 Room Air 01/17/18 15:45 Room Air 01/17/18 15:45 36.8 87 18 109/73 (85) Room Air 01/17/18 12:10 36.8 99 16 105/70 (82) 100 Room Air 01/17/18 07:55 Room Air 01/17/18 07:55 36.5 79 18 96/64 (75) Room Air Physical Exam General Appearance: WELL-APPEARING, WD/WN, NO APPARENT DISTRESS Respiratory/Chest: lungs clear, normal breath sounds Cardiovascular: regular rate, rhythm Abdomen: soft Fundus: Firm, Non-Tender, Relation to Umbilicus (at u) Extremities: no pedal edema, no calf tenderness Assessment and Plan Problem List Medical Problems: (1) Low back pain with sciatica Status: Acute (2) Pelvic cramping Status: Acute (3) Status: Acute (4) state, incidental Status: Acute Post- Day#: 2 Continue Routine Care: 22F s/p NVD day 2 - O+, Rubella Immune, GBS -ve - pt doing well clinically - Vital signs WNL - Routine care - encourage ambulation, encourage breast feeding - pt ready for d/c today and counselled on d/c instructions - f/u 6 weeks in office Resident Physician Supervision Note: I interviewed and examined the patient. Discussed with Dr. Koenig and agree with findings and plan as documented in the note. Any exceptions or clarifications are listed here: Doing well. Plan d/c. Instructions given. Documented By: Kimberlee Vigil Resident Tracking Resident Involvement: Resident Care Provided Care Provided: OB Delivery
[2018-01-18 07:30] VITALS: BP 111/66; PULSE 82; TEMP 36.7
[2018-01-18] MEDS: PRENATAL VITAMIN TAB PO SCH (08:17)
[2018-01-18] MEDS: DOCUSATE SODIUM 100 MG CAP PO SCH (08:17)
[2018-01-18] MEDS: LEVETIRACETAM 500 MG TAB PO SCH (08:17)
[2018-01-18] MEDS: IBUPROFEN 600 MG TAB PO PRN (14:18)
[2018-01-18 15:10] VITALS: BP_DIAS 66; PULSE 82; TEMP 36.7
== END 2018-01-18 15:10 | disposition home or self-care (01) | DRG 775 ==
LOC: C.LD 04:38 → C.OBG 20:05
PROVIDERS: ADMIT Obstetrics & Gynecology; ATTEND Obstetrics & Gynecology
PROC: 0DQR0ZZ Repair Anal Sphincter, Open Approach (ICD-10-PCS; principal; 2018-01-16)
PROC: 10E0XZZ Delivery of Products of Conception, External Approach (ICD-10-PCS; principal; 2018-01-16)
DX: O99.354 Diseases of the nervous system complicating childbirth (principal); O70.20 Third degree perineal laceration during delivery, unspecified; O71.82 Other specified trauma to perineum and vulva; G40.909 Epilepsy, unspecified, not intractable, without status epilepticus; Z86.19 Personal history of other infectious and parasitic diseases; Z37.0 Single live birth; Z3A.41 41 weeks gestation of pregnancy

== ENCOUNTER 2018-04-30 11:26 | Emergency (ER) | payer OTHER ==
[~2018-04-30] VITALS: Ht 154.9 cm; Wt 42.3 kg
[2018-04-30 11:29] VITALS: TEMP 36.7; Ht 154.9 cm; Wt 42.3 kg
[2018-04-30] MEDS ORDERED: BCPILLS PO (12:02)
--- NOTE | 2018-04-30 12:27 | EMERGENCY ROOM VISIT NOTE ---
History Report prepared by [place]on: Karine Palacios Under the Supervision of: Dr. Yariel Valdes M.D. First contact with patient: 12:03 Chief Complaint: MENTAL HEALTH EVALUATION Stated Complaint: SENT BY [facility] TO BE EVALUATED History of Present Illness The patient is a 22 year old female who presents to the Emergency Room for a mental health evaluation. The patient states that she was evaluated for Depression and was supposed to be sent here or the [facility]. She states that last night she took 2 extra pills of her 500 mg Keppra. She states that she normally takes 500 mg. She states that she did so at 2030 in an attempt to hurt herself. The patient complains of feeling guilty about her son. The patient denies taking other pills, taking illicit substances, drinking alcohol, change in her sleeping pattern, loss of interest in activities, difficulty concentrating, access to firearms, access to weapons, attempting to cut herself , and the chance of . Source of History: patient Onset: last night Position: head Quality: other (mental health) Timing: other (episode) Note: The patient complains of feeling guilty about her son and trying to hurt herself. The patient denies taking other pills, taking illicit substances, drinking alcohol, change in her sleeping pattern, loss of interest in activities , difficulty concentrating, access to firearms, access to weapons, attempting to cut herself, and the chance of . Review of Systems See HPI for pertinent positives and negatives. A total of ten systems were reviewed and were otherwise negative. Past Medical & Surgical Medical Problems: (1) History of depression (2) Post term at 41 weeks gestation (3) Seizure Family History Cancer Diabetes mellitus FH: heart disease Hypertension Kidney disease Kidney stones Seizures Social History Smoking Status: Never Smoker Smokeless Tobacco Use: No Alcohol Use: none Drug Use: none Marital Status: single Housing Status: lives with family Occupation Status: student Current/Historical Medications Scheduled Control Pills ( Control Pills), 1 TAB PO DAILY Levetiracetam (Keppra), 500 MG PO BID Riboflavin (Vitamin B-2), 100 MG PO BID Allergies Coded Allergies: Lamotrigine (Verified Allergy, Intermediate, HIVES, 04/30/18) Sulfa Drugs (Verified Allergy, Intermediate, rash, 04/30/18) Metoclopramide (Verified Allergy, Unknown, `, 04/30/18) Uncoded Allergies: CONTRAST MEDIA (Allergy, Mild, RASH, 11/02/14) Physical Exam Vital Signs Date Time Temp Pulse Resp B/P (MAP) Pulse Ox O2 Delivery O2 Flow Rate FiO2 04/30/18 14:13 82 16 101/58 97 Room Air 04/30/18 11:29 36.7 88 20 108/71 98 Room Air Physical Exam Physical Exam GENERAL: She is oriented to person, place, and time. She appears well- developed and well-nourished. She does not appear distressed. HENT: Exam performed. Head: Normocephalic and atraumatic. Right Ear: External ear normal. No mastoid tenderness. Left Ear: External ear normal. No mastoid tenderness. Mouth/Throat: The oropharynx is clear and moist. No trismus in the jaw. No dental abscesses or uvula swelling. No oropharyngeal exudate or tonsillar abscesses. EYES: Conjunctivae and EOM are normal. Pupils are equal, round, and reactive to light. Right eye exhibits no discharge. Left eye exhibits no discharge. No scleral icterus. NECK: Normal range of motion. Neck supple. No JVD present. No spinous process tenderness present. No carotid bruit present. No rigidity. No tracheal deviation and normal range of motion present. No Brudzinski's sign and no Kernig 's sign noted. CV: Normal rate, regular rhythm, normal heart sounds and intact distal pulses. There is no peripheral edema. Palpable radial pulses bue. PULM/CHEST: Effort normal and breath sounds normal. No respiratory distress. No stridor. She has no wheezes. She has no rales. Chest Wall: She exhibits no tenderness. ABD: The abdomen is soft. Bowel sounds are normal. She has no distension. No mass is present. There is no tenderness. There is no rebound, no guarding, no Lujan's sign and no tenderness at McBurney's point. Rovsig negative MUSC/SKEL: Normal range of motion. There is no peripheral edema, tenderness or deformity. LYMPH: No cervical adenopathy. NEURO: She is alert and oriented to person, place, and time. She has normal strength. No cranial nerve deficit or sensory deficit. Coordination and gait normal. GCS eye subscore is 4. GCS verbal subscore is 5. GCS motor subscore is 6. Cerebellar tests wnl. SKIN: Skin is warm and dry. She is not diaphoretic. PSYCH: She has a normal mood and affect. Positive suicidal ideations. Behavior is normal. Judgment and thought content normal. Medical Decision & Procedures Laboratory Results 04/30/18 12:48 Red Blood Count 4.57, Mean Corpuscular Volume 87.3, Mean Corpuscular Hemoglobin 29.8, Mean Corpuscular Hemoglobin Concent 34.1, Mean Platelet Volume 10.3, Neutrophils (%) (Auto) 64.9, Lymphocytes (%) (Auto) 24.5, Monocytes (%) (Auto) 9.7, Eosinophils (%) (Auto) 0.4, Basophils (%) (Auto) 0.4, Neutrophils # (Auto) 4.65, Lymphocytes # (Auto) 1.76, Monocytes # (Auto) 0.70, Eosinophils # (Auto) 0.03, Basophils # (Auto) 0.03 04/30/18 12:48 Test 04/30/18 11:40 04/30/18 12:48 Urine Color DK YELLOW Urine Appearance CLOUDY (CLEAR) Urine pH 5.0 (4.5-7.5) Urine Specific [place] 1.028 (1.000-1.030) Urine Protein NEG (NEG) Urine Glucose (UA) NEG (NEG) Urine Ketones 1+ (NEG) Urine Occult Blood NEG (NEG) Urine Nitrite NEG (NEG) Urine Bilirubin NEG (NEG) Urine Urobilinogen NEG (NEG) Urine Leukocyte Esterase MODERATE (NEG) Urine WBC (Auto) >30 /hpf (0-5) Urine RBC (Auto) 0-4 /hpf (0-4) Urine Hyaline Casts (Auto) 10-30 /lpf (0-5) Urine Epithelial Cells (Auto) 5-10 /lpf (0-5) Urine Bacteria (Auto) NEG (NEG) Urine Test NEG (NEG) Urine Opiates Screen NEG (NEG) Urine Methadone, Qualitative NEG (NEG) Urine Barbiturates NEG (NEG) Urine Phencyclidine (PCP) Level NEG (NEG) Ur Amphetamine/Methamphetamine NEG (NEG) MDMA (Ecstasy) Screen NEG (NEG) Urine Benzodiazepines Screen NEG (NEG) Urine Cocaine Metabolite NEG (NEG) Urine Marijuana (THC) NEG (NEG) White Blood Count 7.18 K/uL (4.8-10.8) Red Blood Count 4.57 M/uL (4.2-5.4) Hemoglobin 13.6 g/dL (12.0-16.0) Hematocrit 39.9 % (37-47) Mean Corpuscular Volume 87.3 fL (80-100) Mean Corpuscular Hemoglobin 29.8 pg (25-34) Mean Corpuscular Hemoglobin Concent 34.1 g/dl (32-36) Platelet Count 217 K/uL (130-400) Mean Platelet Volume 10.3 fL (7.4-10.4) Neutrophils (%) (Auto) 64.9 % Lymphocytes (%) (Auto) 24.5 % Monocytes (%) (Auto) 9.7 % Eosinophils (%) (Auto) 0.4 % Basophils (%) (Auto) 0.4 % Neutrophils # (Auto) 4.65 K/uL (1.4-6.5) Lymphocytes # (Auto) 1.76 K/uL (1.2-3.4) Monocytes # (Auto) 0.70 K/uL (0.11-0.59) Eosinophils # (Auto) 0.03 K/uL (0-0.5) Basophils # (Auto) 0.03 K/uL (0-0.2) RDW Standard Deviation 39.7 fL (36.4-46.3) RDW Coefficient of Variation 12.4 % (11.5-14.5) Immature Granulocyte % (Auto) 0.1 % Immature Granulocyte # (Auto) 0.01 K/uL (0.00-0.02) Anion Gap 10.0 mmol/L (3-11) Est Creatinine Clear Calc Drug Dose 76.2 ml/min Estimated GFR () 127.2 Estimated GFR (Non- 109.8 BUN/Creatinine Ratio 11.3 (10-20) Calcium Level 8.8 mg/dl (8.5-10.1) Total Bilirubin 0.7 mg/dl (0.2-1) Direct Bilirubin 0.2 mg/dl (0-0.2) Aspartate Amino Transf (AST/SGOT) 10 U/L (15-37) Alanine Aminotransferase (ALT/SGPT) 16 U/L (12-78) Alkaline Phosphatase 79 U/L (45-117) Total Protein 8.1 gm/dl (6.4-8.2) Albumin 4.2 gm/dl (3.4-5.0) Thyroid Stimulating Hormone (TSH) 1.970 uIu/ml (0.300-4.500) Salicylates Level < 1.7 mg/dl (2.8-20) Acetaminophen Level < 2 ug/ml (10-30) Ethyl Alcohol mg/dL < 3.0 mg/dl (0-3) Laboratory results reviewed by me Medications Administered Medications (Trade) Dose Ordered Sig/Alexia Route Start Time Stop Time Status Last Admin Dose Admin Nitrofurantoin Macrocrystals (Macrobid Cap) 100 mg ONE ONCE PO 04/30/18 14:15 04/30/18 14:18 DC 04/30/18 14:33 100 MG ECG Per My Interpretation Indication: toxicologic Rate (beats per minute): 62 Rhythm: sinus rhythm Findings: other (VA, QRS, and QT-c intervals are within normal limits, no ST elevations or depressions) ED Course 1211: The patient was evaluated in room A8. A complete history and physical exam was performed. 1228: I discussed the patient's case with Poison Control at this time. They recommend just observing the patient since it is a low dose of Keppra. They do not anticipate any deleterious side effects. 1411: The patient was medically cleared at this time. Her urine showed a mild UTI. Macrobid will be ordered. Psych will evaluate the patient now. 1415: Ordered Macrobid Cap 100 mg PO. 1437: I signed the 201 at this time. The patient was accepted to the [facility]. Medical Decision 1211: The patient was evaluated in room A8. A complete history and physical exam was performed. 1228: I discussed the patient's case with Poison Control at this time. They recommend just observing the patient since it is a low dose of Keppra. They do not anticipate any deleterious side effects. 1411: The patient was medically cleared at this time. Her urine showed a mild UTI. Macrobid will be ordered. Psych will evaluate the patient now. 1415: Ordered Macrobid Cap 100 mg PO. 1437: I signed the 201 at this time. The patient was accepted to the [facility]. Medication Reconcilliation Current Medication List: was personally reviewed by me Blood Pressure Screening Patient's blood pressure: Normal blood pressure Blood pressure disposition: Did not require urgent referral Consults Time Called: 1227 Consulting Physician: Poison Control Returned Call: 1228 I discussed the patient's case with Poison Control at this time. They recommend just observing the patient since it is a low dose of Keppra. They do not anticipate any deleterious side effects. Impression Primary Impression: Suicidal ideation Additional Impression: UTI (urinary tract infection) Scribe Attestation The scribe's documentation has been prepared under my direction and personally reviewed by me in its entirety. I confirm that the note above accurately reflects all work, treatment, procedures, and medical decision making performed by me. The chart was completed utilizing [employer] Speech voice recognition software. Grammatical errors, random word insertions, pronoun errors, and incomplete sentences are an occasional consequence of this system due to software limitations, ambient noise, and hardware issues. Any formal questions or concerns about the content, text, or information contained within the body of this dictation should be directly addressed to the physician for clarification. Departure Information Dispostion Mental Health Acute Care Referrals No Doctor, Assigned (PCP) Patient Instructions My [facility] Problem Qualifiers Additional Impression: UTI (urinary tract infection) Urinary tract infection type: site unspecified Hematuria presence: without hematuria Qualified Codes: N39.0 - Urinary tract infection, site not specified
[2018-04-30 13:16] LABS: BASO % 0.4 %; BASO ABS # 0.03 K/uL (0-0.2); EOS % 0.4 %; EOS ABS # 0.03 K/uL (0-0.5); HEMATOCRIT 39.9 % (37-47); HEMOGLOBIN 13.6 g/dL (12.0-16.0); IG# 0.01 K/uL (0.00-0.02); LYMPH % 24.5 %; LYMPH ABS # 1.76 K/uL (1.2-3.4); MEAN CELL VOLUME 87.3 fL (80-100); MEAN CORPUSCULAR HEMOGLOBIN 29.8 pg (25-34); MEAN CORPUSCULAR HGB CONC 34.1 g/dl (32-36); MEAN PLATELET VOLUME 10.3 fL (7.4-10.4); MONO % 9.7 %; NEUT % 64.9 %; NEUT ABS # 4.65 K/uL (1.4-6.5); PLATELET COUNT 217 K/uL (130-400); RED CELL DISTRIBUTION WIDTH CV 12.4 % (11.5-14.5); RED CELL DISTRIBUTION WIDTH SD 39.7 fL (36.4-46.3); WHITE BLOOD COUNT 7.18 K/uL (4.8-10.8)
[2018-04-30 13:36] LABS: ALBUMIN 4.2 gm/dl (3.4-5.0); CALCIUM 8.8 mg/dl (8.5-10.1); CREATININE 0.76 mg/dl (0.60-1.20); POTASSIUM 4.2 mmol/L (3.5-5.1); TOTAL PROTEIN 8.1 gm/dl (6.4-8.2)
[2018-04-30 14:13] VITALS: BP 101/58; PULSE 82; O2SAT 97
[2018-04-30] MEDS ORDERED: NITROFURANTOIN MONOHYDRATE 100 MG CAP PO ONE (14:15)
== END 2018-04-30 15:30 ==
LOC: C.EDB 11:27 → C.EDA 15:30
DX: R45.851 Suicidal ideations (principal); N39.0 Urinary tract infection, site not specified; R56.9 Unspecified convulsions; Z79.899 Other long term (current) drug therapy; Z79.3 Long term (current) use of hormonal contraceptives; Z88.2 Allergy status to sulfonamides; Z88.8 Allergy status to other drugs, medicaments and biological substances; Z91.041 Radiographic dye allergy status